=== PATIENT | male | born 1935 | race Two or more races ===

== ENCOUNTER 2024-08-30 14:11 | Outpatient (RCR) | payer OTHER, MEDICAID, SELFPAY | END 2024-08-30 23:59 | disposition home or self-care (01) | LOC: RPT 14:11 | PROVIDERS: ATTENDING PHYSICIAN Orthopaedic Surgery Adult Reconstructive Orthopaedic Surgery; FAMILY PHYSICIAN Internal Medicine | DX: Z47.1 Aftercare following joint replacement surgery (principal); Z73.6 Limitation of activities due to disability; R26.2 Difficulty in walking, not elsewhere classified; M62.81 Muscle weakness (generalized); M25.561 Pain in right knee; Z96.651 Presence of right artificial knee joint | CPT/HCPCS: 97010; 97110; 97140; 97162; 97530 ==

== ENCOUNTER 2024-09-29 14:51 | Outpatient (RCR) | payer OTHER, MEDICAID, SELFPAY | END 2024-09-29 23:59 | disposition home or self-care (01) | LOC: RPT 14:51 | PROVIDERS: ATTENDING PHYSICIAN Orthopaedic Surgery Adult Reconstructive Orthopaedic Surgery; FAMILY PHYSICIAN Internal Medicine | DX: Z47.1 Aftercare following joint replacement surgery (principal); Z73.6 Limitation of activities due to disability; Z96.651 Presence of right artificial knee joint; R26.2 Difficulty in walking, not elsewhere classified; M62.81 Muscle weakness (generalized); M25.561 Pain in right knee | CPT/HCPCS: 97010; 97110; 97140; 97530 ==

== ENCOUNTER 2024-10-23 15:11 | Outpatient (RCR) | payer OTHER, MEDICAID, SELFPAY | END 2024-10-23 23:59 | disposition home or self-care (01) | LOC: RPT 15:11 | PROVIDERS: ATTENDING PHYSICIAN Orthopaedic Surgery Adult Reconstructive Orthopaedic Surgery; FAMILY PHYSICIAN Internal Medicine | DX: Z47.1 Aftercare following joint replacement surgery (principal); Z73.6 Limitation of activities due to disability; R26.2 Difficulty in walking, not elsewhere classified; M62.81 Muscle weakness (generalized); M25.561 Pain in right knee; Z96.651 Presence of right artificial knee joint | CPT/HCPCS: 97010; 97110; 97140; 97530 ==

== ENCOUNTER 2024-11-29 15:13 | Outpatient (RCR) | payer OTHER, MEDICAID, SELFPAY | END 2024-11-29 23:59 | disposition home or self-care (01) | LOC: RPT 15:13 | PROVIDERS: ATTENDING PHYSICIAN Orthopaedic Surgery Adult Reconstructive Orthopaedic Surgery; FAMILY PHYSICIAN Internal Medicine | DX: Z47.1 Aftercare following joint replacement surgery (principal); Z73.6 Limitation of activities due to disability; Z96.651 Presence of right artificial knee joint; R26.2 Difficulty in walking, not elsewhere classified; M62.81 Muscle weakness (generalized); M25.561 Pain in right knee | CPT/HCPCS: 97110; 97164; 97530 ==

== ENCOUNTER → 2025-04-12 11:52 | Outpatient (REF) | payer OTHER, SELFPAY | LOC: RAD 11:52 | PROVIDERS: ATTENDING PHYSICIAN Internal Medicine | DX: M54.12 Radiculopathy, cervical region (principal); M25.511 Pain in right shoulder | CPT/HCPCS: 72050; 73030 ==